=== PATIENT | male | born 1975 | race Caucasian/White ===

== ENCOUNTER → 2018-03-10 | Outpatient (CLI) | payer BC ==
[~2018-03-10] MED LIST: IOPAMIDOL 370 MG/ML 200 ML INFUS..BTL INJ ONE; SODIUM CHLORIDE 0.9% 250ML 250 ML ONE
[2018-03-10 16:40] LABS: BLOOD UREA NITROGEN 19 mg/dL (7-26); BUN/CREATININE RATIO 17 (6-25); EST GLOMERULAR FILTRATION RATE > 60 ML/MIN (60-)
--- NOTE | 2018-03-10 18:01 | Diagnostic Imaging Report ---
PROCEDURE:TESTICULAR DOPPLER ULTRASOUND COMPARISON:None. INDICATIONS:SCANNING PRE ORCHIECTOMY TOMORROW, TEST HYPOFUNCTION CONCLUSION: Please see previously dictated report undertaken or ultrasound performed same day. Jamar Lainez M.D. Dictated by: Jamar Lainez M.D. on 03/10/2018 at 18:04 Electronically approved by: Jamar Lainez M.D. on 03/10/2018 at 18:04
--- NOTE | 2018-03-10 18:01 | Diagnostic Imaging Report ---
PROCEDURE:TESTICULAR ULTRASOUND COMPARISON:None. INDICATIONS:SCANNING PRE ORCHIECTOMY TOMORROW, TEST. HYPOFUNCTION TECHNIQUE: Carrillo-scale and color Doppler images of the testicles and scrotal contents were obtained. Duplex imaging with spectral waveform analysis was performed of the testicular arteries and veins. FINDINGS: RIGHT SCROTUM: Testicle: 4.2 x 2.0 x 3.3 cm. Normal echogenicity and vascularity. No focal masses or microcalcifications. Epididymal head: 1.2 x 0.6 x 0.8 cm. No focal lesions. Hydrocele: None Varicocele: None LEFT SCROTUM: Testicle: 4.7 x 3.4 x 5.0 cm. There is a a 4.5 x 2.8 x 4.9 cm lobulated, heterogeneously hypoechoic solid mass occupying the greater portion of the left testicle. An additional 2.0 x 2.0 x 3.4 cm heterogeneous mass is noted in the inferomedial aspect of the testicle. Both of these lesions have internal vascularity. Epididymal head: 1.2 x 1.0 x 0.8 cm. 0.3 x 0.2 x 0.2 cm cystic anechoic lesion in the epididymal head. Hydrocele: None Varicocele: None. Bilateral arterial and venous flow is documented on color Doppler. CONCLUSION: 1. 4.9 cm heterogeneously hypoechoic, solid mass involving the left testicle. An additional 3.4 cm heterogeneous mass is noted in the inferomedial aspect of the testicle. These lesions are suspicious for testicular neoplasm. 2. 0.3 cm left epididymal head cyst versus spermatocele Jamar Lainez M.D. Dictated by: Jamar Lainez M.D. on 03/10/2018 at 18:03 Electronically approved by: Jamar Lainez M.D. on 03/10/2018 at 18:03
--- NOTE | 2018-03-10 18:21 | Diagnostic Imaging Report ---
PROCEDURE: CT ABDOMEN \T\ PELVIS W/WO CONTRAST TECHNIQUE: The abdomen and pelvis were scanned utilizing a multidetector helical scanner from the diaphragm to the lesser trochanter before and after the IV administration of 150 cc of Isovue 370 and the oral administration of water. Coronal and sagittal multiplanar reformations were obtained. COMPARISON: None. INDICATIONS: HEMATURIA. GROWTH ON TESTICLE FINDINGS: LOWER THORAX: Unremarkable. HEPATOBILIARY: Normal hepatic size and contour. No focal hepatic lesions. No biliary ductal dilation. Gallbladder is unremarkable. SPLEEN: No splenomegaly. PANCREAS: No focal masses or ductal dilatation. ADRENALS: No adrenal nodules. KIDNEYS/URETERS: Symmetrical renal enhancement. No renal or ureteral calculi, hydronephrosis, or obstruction. No cystic or solid lesions. There is good contrast opacification of bilateral renal collecting systems, renal pelves, left ureter and mid and distal portions of the right ureter. No filling defects, strictures, or extrinsic compressions are noted in the opacified portions of the genitourinary tract. No significant perinephric stranding PELVIC ORGANS/BLADDER: Bladder is unremarkable, without wall thickening, or focal lesions. Partially visualized left testicular mass (series 6, image 223). PERITONEUM / RETROPERITONEUM: No free air or fluid. LYMPH NODES: No intra-abdominal, retroperitoneal, pelvic, or inguinal adenopathy. VESSELS: Unremarkable. GI TRACT: No bowel dilation or evidence of obstruction. BONES AND SOFT TISSUES: No aggressive lytic lesions. Soft tissues are unremarkable.. IMPRESSION: 1. No renal, ureteral, or bladder calculi. No hydronephrosis or obstruction. No solid or cystic masses. No filling defects, strictures, or extrinsic compressions in the opacified portions of the genitourinary tract. 2. Partially visualized left testicular mass. Please refer to testicular ultrasound performed same date for further detail. 3. No adenopathy. Jamar Lainez M.D. Dictated by: Jamar Lainez M.D. on 03/10/2018 at 18:23 Electronically approved by: Jamar Lainez M.D. on 03/10/2018 at 18:23
== END ==
LOC: US 15:53
PROVIDERS: ATTEND Urology
DX: R31.21 Asymptomatic microscopic hematuria (principal); E29.1 Testicular hypofunction
CPT/HCPCS: 36415; 74178; 76870; 82565; 84520; 93976; J7050